=== PATIENT | female | born 1995 ===

== ENCOUNTER 2020-05-13 11:47 | Emergency (ER) | payer MEDICAID, SELFPAY ==
--- NOTE | 2020-05-13 | US_ITS ---
EXAMINATION: ULTRASOUND OF THE PELVIS CLINICAL INFORMATION: Right-sided pain. Rule out abscess/torsion/cyst/appendicitis. COMPARISON: Pelvic MRI 01/21/2017. Ultrasound 12/22/2016.. TECHNIQUE: Transabdominal and transvaginal pelvic ultrasound. Doppler evaluation with spectral analysis was performed. A transvaginal study was performed in addition to the transabdominal study which did not yield an adequate examination of the uterus and ovaries due to superimposed distended gas-filled loops of bowel. FINDINGS: The uterus is normal in size and appearance, measuring 8.9 x 5.4 x 6.1 cm longitudinally, anteroposteriorly and transversely. The endometrial stripe thickness is normal, measuring 1.3 cm in thickness. No focal myometrial mass is seen. The ovaries bilaterally are visualized, with the right ovary measuring 8.4 x 4.2 x 6.7 cm, compared to 4.5 x 3.1 x 4.3 cm on prior. There is a septated cyst measuring 4.1 x 3.7 x 4 cm. There is also a hyperechoic structure consistent with the previously seen dermoid, currently measuring 4 x 3.3 x 3.8 cm. This is increased from 3 x 2.1 x 3.4 cm on prior. The left ovary measures 5 x 3 x 3.3 cm, similar to prior. Redemonstration of the left ovarian dermoid measuring 3.9 x 2.8 x 2.7 cm, similar to prior. There are normal arterial and venous spectral waveforms bilaterally. Trace pelvic free fluid. Incidental note of a 1.8 cm stone at the gallbladder fundus. The appendix is not visualized on this study. US/US pelvic ovarian doppler IMPRESSION: No evidence of active ovarian torsion at this time. Enlarged ovaries, right greater than left. Significant enlargement of the right ovary when compared to the previous study. 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 There is also a prominent septated right ovarian cyst present, which is a new finding from prior. The appendix is not visualized.
[2020-05-13 12:09] VITALS: BP 135/78; PULSE 61; RESP 18; TEMP 37.6; O2SAT 100; BMI 31.9
[2020-05-13 13:52] LABS: Glucose Urine UA NEG (NEG); Leukocyte Esterase Urine NEG (NEG); Nitrite Urine NEG (NEG); Specific Gravity - Urine 1.025 (1.005-1.025); Urine Blood NEG (NEG); Urine Ketones NEG (NEG); Urine Protein NEG (NEG-TRACE)
[2020-05-13 13:55] LABS: Appearance Urine CLEAR; Color Urine YELLOW
[2020-05-13 13:56] LABS: UPreg QC Valid YES; Urine Pregnancy NEGATIVE (NEGATIVE)
[2020-05-13 14:03] LABS: RBC Urine 0 /HPF (0); Squamous Epithelial Cell Urine 2+ /LPF; UACC CULT YES
[2020-05-13 14:04] LABS: Mucus Urine 2+ /LPF
[2020-05-13 16:07] VITALS: BP 119/68; PULSE 66; RESP 16; TEMP 36.6; O2SAT 96
--- NOTE | 2020-05-13 16:21 | ED.ABDPAIN ---
HPI - Abdominal Pain General Chief Complaint: Abdominal Pain Stated Complaint: Pelvic pain Time Seen by Provider: 05/13/20 13:55 History of Present Illness HPI narrative: Patient complains of low right-sided pelvic pain worse with walking for the past 3 days, no nausea vomiting or diarrhea, no dysuria no frequency , she does have a history of discomfort from ovarian cysts, there is no nausea vomiting or diarrhea, no discomfort with urination no fever no chills denies vaginal discharge, no dizziness no weakness Related Data Previous Rx's Medication Instructions Recorded ibuprofen 800 mg PO Q8H PRN #30 tab 05/13/20 Allergies Allergy/AdvReac Type Severity Reaction Status Date / Time No Known Allergies Allergy Verified 05/13/20 12:09 Review of Systems Review of Systems ROS negatives are no headache no dizziness no weakness of breath no no nausea vomiting diarrhea, no urinary symptoms no dysuria no back pain no rash, no abnormal bleeding Yes all other systems are reviewed and are negative Physical Exam Vital Signs: Vital Signs: Last Vital Signs Temp 97.8 F 05/13/20 16:07 Pulse 66 05/13/20 16:07 Resp 16 05/13/20 16:07 BP 119/68 05/13/20 16:07 Pulse Ox 96 05/13/20 16:07 Body Mass Index 31.9 General appearance is A&O x3 comfortable no acute distress cooperative The pharynx is clear with moist mucous membranes Neck is supple The chest is clear to auscultation bilaterally The heart no murmur The abdomen had mild right low pelvic tenderness no rebound no guarding, there was no McBurney's point tenderness The back no CVA tenderness Extremities no edema no calf tenderness Skin no rash Neuro no focal deficits MDM - Abdominal Pain Medical Records Medical records narrative: White cells in urine were noted, but as patient is asymptomatic with no burning on urination no frequency and all normal with her urine as well as reporting scant white discharge which she said is common for her I did not treat for UTI at this time As she has new finding of enlarged painful cyst I called the office of Dr. Burdick from Gynecology and they can see her next week Wednesday and an appointment was made and patient is aware if pain worsens or anything changes she can come back to the ER any time for another evaluate Lab Data Labs: Lab Results 05/13/20 05/13/20 Range/Units 13:36 13:36 Urine Color YELLOW Urine Appearance CLEAR Urine pH 6.0 (5.0-8.0) Ur Specific [place] 1.025 (1.005-1.025) Urine Protein NEG (NEG-TRACE) MG/DL Urine Glucose (UA) NEG (NEG) MG/DL Urine Ketones NEG (NEG) MG/DL Urine Blood NEG (NEG) Urine Nitrite NEG (NEG) Ur Leukocyte Esterase NEG (NEG) Urine RBC 0 (0) /HPF Urine WBC 10-14 H (0-4) /HPF Ur Squamous Epith Cells 2+ /LPF Urine Bacteria NONE /LPF Urine Mucus 2+ /LPF Urine Test NEGATIVE (NEGATIVE) Imaging Data Pelvic ultrasound: Radiologist's impression: Attending Dr: Ordering Physician: PIETER ULRICH Date of Service: 05/13/20 Procedure(s): US pelvic complete Accession Number(s): [id number] cc: PIETER ULRICH~ EXAMINATION: ULTRASOUND OF THE PELVIS CLINICAL INFORMATION: Right-sided pain. Rule out abscess/torsion/cyst/appendicitis. COMPARISON: Pelvic MRI 01/21/2017. Ultrasound 12/22/2016.. TECHNIQUE: Transabdominal and transvaginal pelvic ultrasound. Doppler evaluation with spectral analysis was performed. A transvaginal study was performed in addition to the transabdominal study which did not yield an adequate examination of the uterus and ovaries due to superimposed distended gas-filled loops of bowel. FINDINGS: The uterus is normal in size and appearance, measuring 8.9 x 5.4 x 6.1 cm longitudinally, anteroposteriorly and transversely. The endometrial stripe thickness is normal, measuring 1.3 cm in thickness. No focal myometrial mass is seen. The ovaries bilaterally are visualized, with the right ovary measuring 8.4 x 4.2 x 6.7 cm, compared to 4.5 x 3.1 x 4.3 cm on prior. There is a septated cyst measuring 4.1 x 3.7 x 4 cm. There is also a hyperechoic structure consistent with the previously seen dermoid, currently measuring 4 x 3.3 x 3.8 cm. This is increased from 3 x 2.1 x 3.4 cm on prior. The left ovary measures 5 x 3 x 3.3 cm, similar to prior. Redemonstration of the left ovarian dermoid measuring 3.9 x 2.8 x 2.7 cm, similar to prior. There are normal arterial and venous spectral waveforms bilaterally. Trace pelvic free fluid. Incidental note of a 1.8 cm stone at the gallbladder fundus. The appendix is not visualized on this study. US/US pelvic complete IMPRESSION: No evidence of active ovarian torsion at this time. Enlarged ovaries, right greater than left. Significant enlargement of the right ovary when compared to the previous study. 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 There is also a prominent septated right ovarian cyst present, which is a new finding from prior. The appendix is not visualiz Discharge Plan Discharge Clinical Impression: Ovarian cyst Patient Disposition: Home, Self-Care Additional Instructions: I called the office of the [facility] doctor Dr. burdick of a and you have an appointment for 815 next Wednesday the 20 of May, the phone #[phone] Called to confirm the appointment and to make sure you know where to go Our ultrasound showed the pain is most likely from on ovarian cyst Return to the ER any time for increased pain, fever, vomiting, any worse condition or any concerns Prescriptions: New ibuprofen 800 mg tablet 800 mg PO Q8H PRN (Reason: pain) Qty: 30 RF: 0 Referrals: Corrina Marvin MD [Physician] - None (Pain from enlarged right ovarian cyst) Stand Alone Forms: Work/School Release Interventions: ED Discharge Assessment Last Done: 05/13/20 16:30 Discharge Date/Time: 05/13/20 16:30 [facility] Past Medical History Attestation statement: The following information was validated with the patient. [facility] Narrative: Patient has prior history of ovarian cysts Source: nursing notes reviewed Medical History (Updated 05/14/20 @ 00:00 by Background Daemon) Asthma
== END 2020-05-13 16:30 | disposition home or self-care (01) ==
PROVIDERS: Physician Assistant Medical; Emergency Provider Emergency Medicine; PCP Pediatrics
DX: N83.209 Unspecified ovarian cyst, unspecified side (principal); R10.2 Pelvic and perineal pain
CPT/HCPCS: 76830; 76856; 81001; 81025; 87086; 93975; 99284

== ENCOUNTER → 2020-05-20 08:27 | Outpatient (BNVA) | payer MEDICAID, SELFPAY | PROVIDERS: PCP Pediatrics; Visit Provider Obstetrics & Gynecology | DX: D27.0 Benign neoplasm of right ovary (principal); D27.1 Benign neoplasm of left ovary; N83.201 Unspecified ovarian cyst, right side | CPT/HCPCS: 99202 ==

== ENCOUNTER → 2020-12-17 11:37 | Outpatient (BNVA) | payer MEDICAID, SELFPAY | PROVIDERS: PCP Pediatrics; Visit Provider Physician Assistant Medical | DX: S90.31XA Contusion of right foot, initial encounter (principal); W23.0XXA Caught, crushed, jammed, or pinched between moving objects, initial encounter | CPT/HCPCS: 73630; 99203 ==

== ENCOUNTER → 2020-12-19 10:39 | Outpatient (BNVA) | payer MEDICAID, SELFPAY | PROVIDERS: PCP Pediatrics; Visit Provider Physician Assistant Medical | DX: S90.31XA Contusion of right foot, initial encounter (principal); X58.XXXA Exposure to other specified factors, initial encounter | CPT/HCPCS: 99213 ==

== ENCOUNTER → 2020-12-24 08:37 | Outpatient (BNVA) | payer MEDICAID, SELFPAY | PROVIDERS: PCP Pediatrics; Visit Provider Physician Assistant Medical | DX: S90.31XA Contusion of right foot, initial encounter (principal); X58.XXXA Exposure to other specified factors, initial encounter | CPT/HCPCS: 99213 ==

== ENCOUNTER 2021-01-27 10:23 | Outpatient (REF) | payer MEDICAID, SELFPAY ==
--- NOTE | ~2021-01-27 | US_ITS ---
EXAMINATION: ULTRASOUND PELVIS AND TRANSVAGINAL CLINICAL INFORMATION: Left lower quadrant pain. COMPARISON: None TECHNIQUE: Transabdominal and transvaginal imaging of pelvis is performed. FINDINGS: The uterus is anteverted measuring 8.6 cm in length, 5.3 cm in AP and 7.6 cm in transverse dimension. The endometrial thickness is 1.44 cm. The right ovary measures 4.7 x 1.9 x 2.83 cm and volume 13.2 mL. It appears unremarkable. Left ovary measures 4.61 x 2.3 cm 3.01 cm and volume 17.2 mL. There is corpus luteal cyst measuring 2.51 x 1.62 x 1.7 cm. There is no free fluid in the cul-de-sac. US/US pelvic and transvaginal IMPRESSION: Small corpus luteal cyst left ovary. The right ovary appears unremarkable. The uterus is unremarkable.
== END 2021-01-27 10:24 | disposition home or self-care (01) ==
LOC: HO.HMGCX 10:23
PROVIDERS: PCP Nurse Practitioner Family; Visit Provider Nurse Practitioner Family
DX: R10.32 Left lower quadrant pain (principal)
CPT/HCPCS: 76830; 76856

== ENCOUNTER 2021-03-25 07:05 | Emergency (ER) | payer MEDICAID, SELFPAY ==
[2021-03-25 07:14] VITALS: BP 120/80; BP 125/62; PULSE 62; RESP 16; TEMP 36.6; O2SAT 95; O2SAT 98; BMI 34.7
--- NOTE | 2021-03-25 07:15 | ECG_ITS ---
Test Reason : CHEST PAIN Blood Pressure : / mmHG Vent. Rate : 059 BPM Atrial Rate : 059 BPM P-R Int : 114 ms QRS Dur : 090 ms QT Int : 444 ms P-R-T Axes : 061 037 028 degrees QTc Int : 439 ms Sinus bradycardia Otherwise normal ECG When compared with ECG of 20-JUL-2017 08:08, No significant change was found Referred By: Kassie Montilla Electronically Signed By:LUCY LYNNE
--- NOTE | 2021-03-25 07:17 | ED_ITS ---
HPI - Chest Pain General Chief Complaint: Chest Pain Stated Complaint: CHEST PAIN Time Seen by Provider: 03/25/21 07:14 Source: patient Mode of arrival: EMS Limitations: no limitations History of Present Illness HPI narrative: 26-year-old female past medical history of asthma presents to the emergency department with a 2 minutes long episode of substernal chest pain without radiation that has now resolved and turned to dull chest pain. She states she when she arrived at work she started feeling this chest pain, she went inside, and the chest pain got worse. She states that it fluctuated between 3/10 and a 10/10. She states she has never had chest pain like this before. At this time she states the chest pain has improved, is dull in nature and non radiating. She denies shortness of breath, fevers, chills, nausea, vomiting, abdominal pain. She is not on control. MD complaint: chest pain Onset (ago): hour(s) (2) Timing of current episode: episodic Prior episodes: No Onset: during rest Pain location: substernal Pain radiation: none Severity: severe Pain scale (0-10): 10 Quality: sharp Relieving factors: nothing Exacerbating factors: nothing Related Data Home Medications Medication Instructions Recorded Confirmed albuterol sulfate 90 mcg/actuation 2 puff INHALATION Q6H PRN 05/20/20 aerosol inhaler Previous Rx's Medication Instructions Recorded ibuprofen 800 mg tablet 800 mg PO Q8H PRN #30 tab 05/13/20 Allergies Allergy/AdvReac Type Severity Reaction Status Date / Time No Known Allergies Allergy Verified 05/20/20 08:41 Review of Systems Review of Systems: Constitutional : No Fever, No Chills ENT/Mouth : positive oral swelling, No Hoarseness, No Swallowing Difficulty Eyes: No Eye Pain, No Swelling, No Redness Cardiovascular : + Chest Pain, No SOB Respiratory : No Cough, No Sputum, No Wheezing, No Smoke Exposure, No Dyspnea Gastrointestinal : No Nausea, No Vomiting, No Diarrhea, No abdominal Pain Genitourinary : No Dysuria, No Urinary Frequency, No Hematuria Musculoskeletal : No joint pain, No Myalgias, No Joint Swelling Skin : No Skin Lesions, positive rash Neuro : No Weakness, No Numbness, No Headache Psych : No Anxiety/Panic, No Depression All other systems reviewed and are negative [facility] Past Medical History Medical History (Updated 03/25/21 @ 09:59 by Kassie Montilla DO) Asthma Family History Family History (Updated 05/20/20 @ 08:43 by Shikha Ramírez CMA) Mother Asthma Father Diabetes Social History Social History (Updated 05/20/20 @ 08:43 by Shikha Ramírez CMA) Alcohol intake: current Alcohol intake frequency: holidays/special occasions only Patient Tobacco Use Status: Never used Tobacco Use of substances other than those prescribed or required for medical reasons: No Advance Directives: No Advance Directives Information Provided: No Patient : No Sexual orientation: Straight/Heterosexual Gender identity: Female Physical Exam Vital Signs: Vital Signs: Last Vital Signs Temp 98.0 F 03/25/21 09:17 Pulse 64 03/25/21 10:08 Resp 15 03/25/21 10:08 BP 108/70 03/25/21 10:08 Pulse Ox 98 03/25/21 10:08 Body Mass Index 34.7 Appearance: Alert. Oriented X3. No acute distress. Eyes: Pupils equal, round and reactive to light. Neck: Normal inspection. Neck supple. CVS: Normal heart rate and rhythm. Pulses normal. Respiratory: No respiratory distress. Breath sounds normal. Abdomen: Soft and nontender. Skin: Skin warm and dry. Normal skin color. Normal skin turgor. Extremities: No lower extremity edema. No calf ttp Neuro: Oriented X 3. No motor deficit. No sensory deficit. Course Course Course Narrative: two trops flat MDM - Chest Pain MDM Narrative Medical decision making narrative: 26-year-old female past medical history significant for asthma presents to the emergency department with one episode of chest pain that is substernal, nonradiating and between 3/10 and 10/10. She states that this episode lasted for 2 minutes. At this time she states she is not having stabbing centralized chest pain she states it is a dull nonradiating pain. She states nothing like this has ever happened to her before. She is not on control, denies cardiac family history. PERC negative PE not likely Lab Data Result diagrams: 03/25/21 07:41 03/25/21 07:41 Labs: Lab Results 03/25/21 03/25/21 03/25/21 Range/Units 07:41 07:41 07:41 WBC 7.7 (4.8-10.8) X10*3/uL RBC 4.29 (4.20-5.50) X10*6/uL Hgb 12.2 (12.0-16.0) g/dl Hct 36.7 L (37-47) % MCV 85.5 (80-98) fL MCH 28.4 (27.0-33.0) pg MCHC 33.2 (31.0-35.0) g/dl RDW 11.9 (11.0-16.0) % Plt Count 271 (160-400) X10*3/uL MPV 11.0 (9.4-12.3) fL Immature Gran % (Auto) 0.3 (0.0-0.4) % Neut % (Auto) 64.2 (45-73) % Lymph % (Auto) 24.5 (20-40) % [place] % (Auto) 5.1 (2-11) % Eos % (Auto) 5.5 H (0-4) % Baso % (Auto) 0.4 (0-2) % Lymph # (Auto) 1.9 (1.2-4.9) X10*3/uL [place] # (Auto) 0.4 (0.1-1.2) X10*3/uL Eos # (Auto) 0.4 (0.0-0.4) X10*3/uL Baso # (Auto) 0.0 (0.0-0.2) X10*3/uL Abs Immat Gran (auto) 0.02 (0.00-0.03) X10*3/uL Absolute Neuts (auto) 4.9 (2.0-8.3) X10*3/uL Absolute Nucleated RBC 0.000 (0.0-0.012) X10*3/uL Nucleated RBC % (auto) 0.0 (0.0-0.2) /100WBC Sodium 137 (135-145) mmol/L Potassium 4.3 (3.3-5.1) mmol/L Chloride 107 (96-108) mmol/L Carbon Dioxide 24 (22-29) mmol/L Anion Gap 10 L (12-20) BUN 8 L (9-16) mg/dL Creatinine 0.81 (0.5-1.4) mg/dL Estim Creat Clear Calc 126.1 Estimated GFR > 60 Random Glucose 98 (60-115) mg/dL Calcium 9.1 (8.4-10.2) mg/dL Magnesium 2.0 (1.6-2.6) mg/dL Total Bilirubin 0.7 (0.0-1.0) mg/dL Direct Bilirubin 0.2 (0.0-0.5) mg/dL AST 15 (5-31) U/L ALT 14 (0-31) U/L Alkaline Phosphatase 87 (39-117) U/L Troponin I High Sens < 3.5 (<3.5-17.0) ng/L Total Protein 6.8 (6.5-8.0) g/dL Albumin 4.1 (3.5-5.0) g/dL Urine Color Urine Appearance Urine pH (5.0-8.0) Ur Specific [place] (1.005-1.025) Urine Protein (NEG-TRACE) MG/DL Urine Glucose (UA) (NEG) MG/DL Urine Ketones (NEG) MG/DL Urine Blood (NEG) Urine Nitrite (NEG) Ur Leukocyte Esterase (NEG) Urine RBC (0) /HPF Urine WBC (0-4) /HPF Ur Squamous Epith Cells /LPF Urine Bacteria /LPF Urine Test (NEGATIVE) COVID-19 ([facility]) (Negative) COVID-19 Clin Com 03/25/21 03/25/21 03/25/21 Range/Units 07:41 07:51 07:51 WBC (4.8-10.8) X10*3/uL RBC (4.20-5.50) X10*6/uL Hgb (12.0-16.0) g/dl Hct (37-47) % MCV (80-98) fL MCH (27.0-33.0) pg MCHC (31.0-35.0) g/dl RDW (11.0-16.0) % Plt Count (160-400) X10*3/uL MPV (9.4-12.3) fL Immature Gran % (Auto) (0.0-0.4) % Neut % (Auto) (45-73) % Lymph % (Auto) (20-40) % [place] % (Auto) (2-11) % Eos % (Auto) (0-4) % Baso % (Auto) (0-2) % Lymph # (Auto) (1.2-4.9) X10*3/uL [place] # (Auto) (0.1-1.2) X10*3/uL Eos # (Auto) (0.0-0.4) X10*3/uL Baso # (Auto) (0.0-0.2) X10*3/uL Abs Immat Gran (auto) (0.00-0.03) X10*3/uL Absolute Neuts (auto) (2.0-8.3) X10*3/uL Absolute Nucleated RBC (0.0-0.012) X10*3/uL Nucleated RBC % (auto) (0.0-0.2) /100WBC Sodium (135-145) mmol/L Potassium (3.3-5.1) mmol/L Chloride (96-108) mmol/L Carbon Dioxide (22-29) mmol/L Anion Gap (12-20) BUN (9-16) mg/dL Creatinine (0.5-1.4) mg/dL Estim Creat Clear Calc Estimated GFR Random Glucose (60-115) mg/dL Calcium (8.4-10.2) mg/dL Magnesium (1.6-2.6) mg/dL Total Bilirubin (0.0-1.0) mg/dL Direct Bilirubin (0.0-0.5) mg/dL AST (5-31) U/L ALT (0-31) U/L Alkaline Phosphatase (39-117) U/L Troponin I High Sens (<3.5-17.0) ng/L Total Protein (6.5-8.0) g/dL Albumin (3.5-5.0) g/dL Urine Color YELLOW Urine Appearance CLEAR Urine pH 6.5 (5.0-8.0) Ur Specific [place] 1.020 (1.005-1.025) Urine Protein NEG (NEG-TRACE) MG/DL Urine Glucose (UA) NEG (NEG) MG/DL Urine Ketones NEG (NEG) MG/DL Urine Blood NEG (NEG) Urine Nitrite NEG (NEG) Ur Leukocyte Esterase TRACE H (NEG) Urine RBC 0-2 (0) /HPF Urine WBC 1-4 (0-4) /HPF Ur Squamous Epith Cells 1+ /LPF Urine Bacteria TRACE /LPF Urine Test NEGATIVE (NEGATIVE) COVID-19 ([facility]) Negative (Negative) COVID-19 Clin Com See Note 03/25/21 Range/Units 09:22 WBC (4.8-10.8) X10*3/uL RBC (4.20-5.50) X10*6/uL Hgb (12.0-16.0) g/dl Hct (37-47) % MCV (80-98) fL MCH (27.0-33.0) pg MCHC (31.0-35.0) g/dl RDW (11.0-16.0) % Plt Count (160-400) X10*3/uL MPV (9.4-12.3) fL Immature Gran % (Auto) (0.0-0.4) % Neut % (Auto) (45-73) % Lymph % (Auto) (20-40) % [place] % (Auto) (2-11) % Eos % (Auto) (0-4) % Baso % (Auto) (0-2) % Lymph # (Auto) (1.2-4.9) X10*3/uL [place] # (Auto) (0.1-1.2) X10*3/uL Eos # (Auto) (0.0-0.4) X10*3/uL Baso # (Auto) (0.0-0.2) X10*3/uL Abs Immat Gran (auto) (0.00-0.03) X10*3/uL Absolute Neuts (auto) (2.0-8.3) X10*3/uL Absolute Nucleated RBC (0.0-0.012) X10*3/uL Nucleated RBC % (auto) (0.0-0.2) /100WBC Sodium (135-145) mmol/L Potassium (3.3-5.1) mmol/L Chloride (96-108) mmol/L Carbon Dioxide (22-29) mmol/L Anion Gap (12-20) BUN (9-16) mg/dL Creatinine (0.5-1.4) mg/dL Estim Creat Clear Calc Estimated GFR Random Glucose (60-115) mg/dL Calcium (8.4-10.2) mg/dL Magnesium (1.6-2.6) mg/dL Total Bilirubin (0.0-1.0) mg/dL Direct Bilirubin (0.0-0.5) mg/dL AST (5-31) U/L ALT (0-31) U/L Alkaline Phosphatase (39-117) U/L Troponin I High Sens < 3.5 (<3.5-17.0) ng/L Total Protein (6.5-8.0) g/dL Albumin (3.5-5.0) g/dL Urine Color Urine Appearance Urine pH (5.0-8.0) Ur Specific [place] (1.005-1.025) Urine Protein (NEG-TRACE) MG/DL Urine Glucose (UA) (NEG) MG/DL Urine Ketones (NEG) MG/DL Urine Blood (NEG) Urine Nitrite (NEG) Ur Leukocyte Esterase (NEG) Urine RBC (0) /HPF Urine WBC (0-4) /HPF Ur Squamous Epith Cells /LPF Urine Bacteria /LPF Urine Test (NEGATIVE) COVID-19 ([facility]) (Negative) COVID-19 Clin Com ECG Data ECG #1: Attestation: I personally reviewed and interpreted this ECG as follows: ECG interpretation date: 03/25/21 ECG interpretation time: 07:57 Prior ECG tracings: available for review Interpretation: Rate: 59 Rhythm: Sinus bradycardia Equality: Normal axis Normal P waves. Normal AGATHA. Normal QRS complex. ST T wave : No ST elevations, T-wave inversions . No acute ischemia qTC: Normal prior studies: 07/20/2017, no acute changes The study has been interpreted contemporaneously by me. . Discharge Plan Discharge Clinical Impression: Chest pain Qualifiers: Chest pain type: unspecified Qualified Code(s): R07.9 - Chest pain, unspecified Patient Disposition: Home, Self-Care Instructions: Chest Pain (ED) Additional Instructions: Follow-up with your primary care provider Return to the emergency department with new or worsening symptoms Today you tested negative for COVID-19 in the emergency department Prescriptions: No Action ibuprofen 800 mg tablet 800 mg PO Q8H PRN (Reason: pain) Qty: 30 RF: 0 albuterol sulfate 90 mcg/actuation HFA aerosol inhaler 2 puff inhalation Q6H PRNRF: 0 Stand Alone Forms: Work/School Release Interventions: ED Discharge Assessment Last Done: 03/25/21 10:03 Discharge Date/Time: 03/25/21 10:08
[2021-03-25 07:53] VITALS: BP 121/68; PULSE 59; RESP 13; TEMP 36.6; O2SAT 99
[2021-03-25 07:59] LABS: MANUAL DIFF FLAG NO
[2021-03-25 08:02] LABS: Basophils Percent Auto 0.4 % (0-2); Eosinophils Absolute Auto 0.4 X10*3/uL (0.0-0.4); Eosinophils Percent Auto 5.5 % (0-4); Hematocrit 36.7 % (37-47); Hemoglobin 12.2 g/dl (12.0-16.0); Imm Gran Abs Auto 0.02 X10*3/uL (0.00-0.03); Imm Gran Pct Auto 0.3 % (0.0-0.4); Lymphocytes Absolute Auto 1.9 X10*3/uL (1.2-4.9); Lymphocytes Percent Auto 24.5 % (20-40); Mean Corpuscular HGB Conc 33.2 g/dl (31.0-35.0); Mean Corpuscular Hemoglobin 28.4 pg (27.0-33.0); Mean Corpuscular Volume 85.5 fL (80-98); Monocytes Absolute Auto 0.4 X10*3/uL (0.1-1.2); Monocytes Percent Auto 5.1 % (2-11); Neutrophils Absolute Auto 4.9 X10*3/uL (2.0-8.3); Neutrophils Percent Auto 64.2 % (45-73); Platelet Count 271 X10*3/uL (160-400); Red Blood Count 4.29 X10*6/uL (4.20-5.50); Red Cell Distribution Width 11.9 % (11.0-16.0); White Blood Count 7.7 X10*3/uL (4.8-10.8)
[2021-03-25 08:04] LABS: Appearance Urine CLEAR; Color Urine YELLOW; Glucose Urine UA NEG (NEG); Leukocyte Esterase Urine TRACE (NEG); Nitrite Urine NEG (NEG); PH 6.5 (5.0-8.0); UACC Culture Trigger YES; Urine Blood NEG (NEG); Urine Ketones NEG (NEG); Urine Protein NEG (NEG-TRACE)
[2021-03-25 08:07] LABS: UPreg QC Valid YES; Urine Pregnancy NEGATIVE (NEGATIVE)
[2021-03-25 08:19] LABS: Bacteria Urine TRACE /LPF; RBC Urine 0-2 /HPF (0); Squamous Epithelial Cell Urine 1+ /LPF
[2021-03-25 08:21] LABS: Alanine Aminotransferase 14 U/L (0-31); Albumin Level 4.1 g/dL (3.5-5.0); Alkaline Phosphatase 87 U/L (39-117); Anion Gap 10 (12-20); Aspartate Amino Transferase 15 U/L (5-31); Bilirubin Direct 0.2 mg/dL (0.0-0.5); Bilirubin Total 0.7 mg/dL (0.0-1.0); Blood Urea Nitrogen 8 mg/dL (9-16); Calcium 9.1 mg/dL (8.4-10.2); Carbon Dioxide 24 mmol/L (22-29); Chloride 107 mmol/L (96-108); Creatinine Clr Calc Pharmacy 126.1; Estimated Glomerular Filt Rate > 60; Glucose Random 98 mg/dL (60-115); Potassium 4.3 mmol/L (3.3-5.1); Sodium 137 mmol/L (135-145); Total Protein 6.8 g/dL (6.5-8.0)
[2021-03-25 08:25] LABS: COVID-19 Test Negative (Negative); Troponin-I High Sensitivity < 3.5 ng/L (<3.5-17.0)
[2021-03-25 09:17] VITALS: BP 108/69; PULSE 58; RESP 14; TEMP 36.7; O2SAT 99
[2021-03-25 09:56] LABS: Troponin-I High Sensitivity < 3.5 ng/L (<3.5-17.0)
[2021-03-25 10:08] VITALS: BP 108/70; PULSE 64; RESP 15; O2SAT 98
== END 2021-03-25 10:08 | disposition home or self-care (01) ==
PROVIDERS: Emergency Provider Emergency Medicine
DX: R07.9 Chest pain, unspecified (principal); Z20.822 Contact with and (suspected) exposure to COVID-19; Z79.899 Other long term (current) drug therapy
CPT/HCPCS: 36415; 80048; 80076; 81001; 81003; 81025; 83735; 84484; 85025; 87086; 87635; 93005; 99283; 99285

== ENCOUNTER 2021-06-26 15:36 | Emergency (ER) | payer MEDICAID, SELFPAY ==
--- NOTE | ~2021-06-26 | US_ITS ---
EXAMINATION: ULTRASOUND PELVIC, obstetrics CLINICAL INFORMATION: . Pelvic pain. Concern for torsion. COMPARISON: Pelvic ultrasound 01/27/2021 TECHNIQUE: Transvaginal: Used to better visualize pelvic structures Transabdominal: Not adequate for visualization Spectral Doppler and color Doppler exam was utilized. LMP: 05/24/2021 FINDINGS: UTERUS: Uterus is anteverted and anteflexed. Uterus measures 9.7 x 5.3 x 6.7 cm. There is an intrauterine gestational sac with yolk sac present. There is a pole with crown-rump length of 0.2 cm consistent with dating of 5 weeks 6 days. ETELVINA 02/21/2022. (Gestational sac diameter 0.42 cm which would correlate with dating of 4 weeks 6 days.) Small collection of fluid in the endometrial cavity. ADNEXA: Ovarian vascularity:Doppler demonstrates both arterial and venous vascular flow in the right and left ovary. No evidence of ovarian torsion. Right Ovary: Corpus luteum cyst measuring 3 x 2.2 x 2.2 cm. Right ovary measures 5.5 x 2.8 x 3.1 cm. Right ovarian volume 25 mL. Left Ovary: 3.7 x 2.1 x 2.2 cm. Left ovarian volume 9 mL Cul-de-sac: No Fluid US/US OB <= 14 weeks fetus IMPRESSION: 1. Single intrauterine gestation with estimated gestational age by this exam using crown-rump length measurement is 5 weeks 6 days. 2. Corpus luteum cyst right ovary. 3. No evidence of ovarian torsion.
--- NOTE | ~2021-06-26 | US_ITS ---
EXAMINATION: ULTRASOUND PELVIC, obstetrics CLINICAL INFORMATION: . Pelvic pain. Concern for torsion. COMPARISON: Pelvic ultrasound 01/27/2021 TECHNIQUE: Transvaginal: Used to better visualize pelvic structures Transabdominal: Not adequate for visualization Spectral Doppler and color Doppler exam was utilized. LMP: 05/24/2021 FINDINGS: UTERUS: Uterus is anteverted and anteflexed. Uterus measures 9.7 x 5.3 x 6.7 cm. There is an intrauterine gestational sac with yolk sac present. There is a pole with crown-rump length of 0.2 cm consistent with dating of 5 weeks 6 days. ETELVINA 02/21/2022. (Gestational sac diameter 0.42 cm which would correlate with dating of 4 weeks 6 days.) Small collection of fluid in the endometrial cavity. ADNEXA: Ovarian vascularity:Doppler demonstrates both arterial and venous vascular flow in the right and left ovary. No evidence of ovarian torsion. Right Ovary: Corpus luteum cyst measuring 3 x 2.2 x 2.2 cm. Right ovary measures 5.5 x 2.8 x 3.1 cm. Right ovarian volume 25 mL. Left Ovary: 3.7 x 2.1 x 2.2 cm. Left ovarian volume 9 mL Cul-de-sac: No Fluid US/US pelvic ovarian doppler IMPRESSION: 1. Single intrauterine gestation with estimated gestational age by this exam using crown-rump length measurement is 5 weeks 6 days. 2. Corpus luteum cyst right ovary. 3. No evidence of ovarian torsion.
[2021-06-26 17:14] VITALS: BP 125/60; PULSE 72; RESP 18; TEMP 36.8; O2SAT 98; BMI 32.8
--- NOTE | 2021-06-26 17:25 | ED_ITS ---
HPI - Abdominal Pain General Chief Complaint: Abdominal Pain Stated Complaint: Left lower abd pain Time Seen by Provider: 06/26/21 17:15 Source: patient Mode of arrival: ambulatory Limitations: no limitations History of Present Illness HPI narrative: 26-year-old female with a history of ovarian cyst status post resection in July of this year at [facility] who presents to the ER with left- sided lower pelvic pain that is worse with movement. Pain has been present for the last 2 days and comes and goes. She has also 3 days late for her menses. She has been trying to get for 10 months now. She denies any nausea, vomiting, fever, chills. She has clear vaginal discharge and no vaginal bleeding. No concern for STI, no new sexual partners. MD elicited complaint: abdominal pain Pertinent past history: other (Ovarian cysts) Onset (ago): day(s) (2) Pain Consistency: intermittent Location: LLQ and pelvis Severity: moderate Quality: stabbing Radiation: none Migration to: no migration Exacerbating factors: movement and other (Walking) Relieving factors: nothing Context: history of similar episodes Associated symptoms: denies other symptoms Related Data Home Medications Medication Instructions Recorded Confirmed albuterol sulfate 90 mcg/actuation 2 puff INHALATION Q6H PRN 05/20/20 aerosol inhaler Previous Rx's Medication Instructions Recorded ibuprofen 800 mg tablet 800 mg PO Q8H PRN #30 tab 05/13/20 Allergies Allergy/AdvReac Type Severity Reaction Status Date / Time No Known Allergies Allergy Verified 06/26/21 17:14 Review of Systems Review of Systems Constitutional: No Fever, No Chills ENT/Mouth: No sore throat, No Rhinorrhea, No Swallowing Difficulty Cardiovascular: No Chest Pain, No SOB Gastrointestinal: No Nausea, No Vomiting, No Diarrhea, + abdominal Pain, No Hematochezia, No Melena Genitourinary: No Dysuria, No Urinary Frequency, No Hematuria, No vaginal discharge Musculoskeletal: No joint pain, No Myalgias Skin: No Skin Lesions, No rash Neuro: No Weakness, No Numbness, No Dizziness, No Headache Psych: + Anxiety/Panic, No Depression Heme/Lymph: No Bruising, No Lymphadenopathy Endocrine: No Polyuria, No Polydipsia Physical Exam Vital Signs: Vital Signs: Last Vital Signs Temp 97.9 F 06/26/21 18:39 Pulse 71 06/26/21 18:39 Resp 18 06/26/21 18:39 BP 122/68 06/26/21 18:39 Pulse Ox 100 06/26/21 18:39 BMI result Body Mass Index 32.8 Appearance: Alert. Oriented X3. No acute distress. Eyes: Pupils equal, round and reactive to light. ENT: Pharynx normal. Neck: Normal inspection. Neck supple. CVS: Normal heart rate and rhythm. Pulses normal. Respiratory: No respiratory distress. Breath sounds normal. Abdomen: Soft with mild LLQ tenderness on deep palpation, no palpable mass. no rebound or gurading. +BS x4. pelvic deferred Skin: Skin warm and dry. Normal skin color. Normal skin turgor. No rashes. Extremities: No lower extremity edema. Neuro: Oriented X 3. grossly normal, nonfocal Course Course Course Narrative: 26-year-old female presenting with left lower pelvic pain for the last 2 days. She reports pain is similar to when she had her ovarian cyst. She is also 3 days late for her period. She has been actively trying to get for the last 10 months. Will get HCG quant, Pelvic U/S, UA and lab workup. Pelvic deferred for now, denies concern for STI. Reevaluation(s) Reevaluation #1: Pelvic ultrasound showing single IUP, approximately 5 weeks gestation. No ovarian torsion. UA negarive. Labs otherwise unremarkable. Patient stable for d/c home with plan to f/u with PCP and presser first. MDM - Abdominal Pain Lab Data Result diagrams: 06/26/21 18:09 06/26/21 18:09 Labs: Lab Results 06/26/21 06/26/21 06/26/21 Range/Units 18:09 18:09 18:09 WBC 8.1 (4.8-10.8) X10*3/uL RBC 4.00 L (4.20-5.50) X10*6/uL Hgb 11.6 L (12.0-16.0) g/dl Hct 34.4 L (37.0-47.0) % MCV 86.0 (80.0-98.0) fL MCH 29.0 (27.0-33.0) pg MCHC 33.7 (31.0-35.0) g/dl RDW 12.1 (11.0-16.0) % Plt Count 287 (160-400) X10*3/uL MPV 10.7 (9.4-12.3) fL Immature Gran % (Auto) 0.1 (0.0-0.4) % Neut % (Auto) 67.7 (45-73) % Lymph % (Auto) 21.5 (20-40) % [place] % (Auto) 7.9 (2-11) % Eos % (Auto) 2.6 (0-4) % Baso % (Auto) 0.2 (0-2) % Lymph # (Auto) 1.7 (1.2-4.9) X10*3/uL [place]uming # (Auto) 0.6 (0.1-1.2) X10*3/uL Eos # (Auto) 0.2 (0.0-0.4) X10*3/uL Baso # (Auto) 0.0 (0.0-0.2) X10*3/uL Abs Immat Gran (auto) 0.01 (0.00-0.03) X10*3/uL Absolute Neuts (auto) 5.5 (2.0-8.3) x10*3/uL Absolute Nucleated RBC 0.000 (0.0-0.012) X10*3/uL Nucleated RBC % (auto) 0.0 (0.0-0.2) /100WBC Sodium 137 (135-145) mmol/L Potassium 3.8 (3.3-5.1) mmol/L Chloride 108 (96-108) mmol/L Carbon Dioxide 23 (22-29) mmol/L Anion Gap 10 L (12-20) BUN 6 L (9-16) mg/dL Creatinine 0.76 (0.5-1.4) mg/dL Estim Creat Clear Calc 135.2 Estimated GFR > 60 Random Glucose 95 (60-115) mg/dL Calcium 9.4 (8.4-10.2) mg/dL Magnesium 1.9 (1.6-2.6) mg/dL Total Bilirubin 0.4 (0.0-1.0) mg/dL Direct Bilirubin 0.2 (0.0-0.5) mg/dL AST 16 (5-31) U/L ALT 19 (0-31) U/L Alkaline Phosphatase 73 (39-117) U/L Total Protein 6.7 (6.5-8.0) g/dL Albumin 4.0 (3.5-5.0) g/dL Beta HCG, Quant 1130 mIU/mL Urine Color Urine Appearance Urine pH (5.0-8.0) Ur Specific [place] (1.005-1.025) Urine Protein (NEG-TRACE) MG/DL Urine Glucose (UA) (NEG) MG/DL Urine Ketones (NEG) MG/DL Urine Blood (NEG) Urine Nitrite (NEG) Ur Leukocyte Esterase (NEG) COVID-19 (ROBERT) Negative (Negative) COVID-19 Clin Com See Note 06/26/21 Range/Units 18:09 WBC (4.8-10.8) X10*3/uL RBC (4.20-5.50) X10*6/uL Hgb (12.0-16.0) g/dl Hct (37.0-47.0) % MCV (80.0-98.0) fL MCH (27.0-33.0) pg MCHC (31.0-35.0) g/dl RDW (11.0-16.0) % Plt Count (160-400) X10*3/uL MPV (9.4-12.3) fL Immature Gran % (Auto) (0.0-0.4) % Neut % (Auto) (45-73) % Lymph % (Auto) (20-40) % [place] % (Auto) (2-11) % Eos % (Auto) (0-4) % Baso % (Auto) (0-2) % Lymph # (Auto) (1.2-4.9) X10*3/uL [place] # (Auto) (0.1-1.2) X10*3/uL Eos # (Auto) (0.0-0.4) X10*3/uL Baso # (Auto) (0.0-0.2) X10*3/uL Abs Immat Gran (auto) (0.00-0.03) X10*3/uL Absolute Neuts (auto) (2.0-8.3) x10*3/uL Absolute Nucleated RBC (0.0-0.012) X10*3/uL Nucleated RBC % (auto) (0.0-0.2) /100WBC Sodium (135-145) mmol/L Potassium (3.3-5.1) mmol/L Chloride (96-108) mmol/L Carbon Dioxide (22-29) mmol/L Anion Gap (12-20) BUN (9-16) mg/dL Creatinine (0.5-1.4) mg/dL Estim Creat Clear Calc Estimated GFR Random Glucose (60-115) mg/dL Calcium (8.4-10.2) mg/dL Magnesium (1.6-2.6) mg/dL Total Bilirubin (0.0-1.0) mg/dL Direct Bilirubin (0.0-0.5) mg/dL AST (5-31) U/L ALT (0-31) U/L Alkaline Phosphatase (39-117) U/L Total Protein (6.5-8.0) g/dL Albumin (3.5-5.0) g/dL Beta HCG, Quant mIU/mL Urine Color DK YELLOW Urine Appearance HAZY Urine pH 6.0 (5.0-8.0) Ur Specific [place] 1.025 (1.005-1.025) Urine Protein TRACE (NEG-TRACE) MG/DL Urine Glucose (UA) NEG (NEG) MG/DL Urine Ketones 5 (NEG) MG/DL Urine Blood NEG (NEG) Urine Nitrite NEG (NEG) Ur Leukocyte Esterase NEG (NEG) COVID-19 (ROBERT) (Negative) COVID-19 Clin Com Critical Care Time Critical Care Time Critical Care Time: No Discharge Plan Discharge Clinical Impression: Qualifiers: Weeks of gestation: less than 8 weeks Qualified Code(s): Z3A.01 - Less than 8 weeks gestation of Patient Disposition: Home, Self-Care Instructions: (ED) Additional Instructions: Ultrasound today showed a single intrauterine gestational sac that is estimated about 5 weeks 6 days along. Congrats! :) Recommend start taking vitamins.Your labs showed some mild anemia. Follow-up with your OB for further management. Prescriptions: No Action ibuprofen 800 mg tablet 800 mg PO Q8H PRN (Reason: pain) Qty: 30 RF: 0 albuterol sulfate 90 mcg/actuation HFA aerosol inhaler 2 puff inhalation Q6H PRNRF: 0 PMFSH Past Medical History Medical History (Updated 06/26/21 @ 18:06 by CARL Linares) Asthma Ovarian cyst Family History Family History (Updated 05/20/20 @ 08:43 by Shikha Ramírez CMA) Mother Asthma Father Diabetes Social History Social History (Updated 05/20/20 @ 08:43 by Shikha Ramírez CMA) Alcohol intake: current Alcohol intake frequency: holidays/special occasions only Patient Tobacco Use Status: Never used Tobacco Advance Directives: No Advance Directives Information Provided: No Sexual orientation: Straight/Heterosexual Gender identity: Female
[2021-06-26 18:22] LABS: MANUAL DIFF FLAG NO
[2021-06-26 18:24] LABS: Basophils Percent Auto 0.2 % (0-2); Eosinophils Absolute Auto 0.2 X10*3/uL (0.0-0.4); Eosinophils Percent Auto 2.6 % (0-4); Hematocrit 34.4 % (37.0-47.0); Hemoglobin 11.6 g/dl (12.0-16.0); Imm Gran Abs Auto 0.01 X10*3/uL (0.00-0.03); Imm Gran Pct Auto 0.1 % (0.0-0.4); Lymphocytes Absolute Auto 1.7 X10*3/uL (1.2-4.9); Lymphocytes Percent Auto 21.5 % (20-40); Mean Corpuscular HGB Conc 33.7 g/dl (31.0-35.0); Mean Platelet Volume 10.7 fL (9.4-12.3); Monocytes Absolute Auto 0.6 X10*3/uL (0.1-1.2); Monocytes Percent Auto 7.9 % (2-11); Neutrophils Absolute Auto 5.5 x10*3/uL (2.0-8.3); Neutrophils Percent Auto 67.7 % (45-73); Platelet Count 287 X10*3/uL (160-400); Red Cell Distribution Width 12.1 % (11.0-16.0); White Blood Count 8.1 X10*3/uL (4.8-10.8)
[2021-06-26 18:39] VITALS: BP 122/68; PULSE 71; RESP 18; TEMP 36.6; O2SAT 100
[2021-06-26 18:39] LABS: Alanine Aminotransferase 19 U/L (0-31); Alkaline Phosphatase 73 U/L (39-117); Anion Gap 10 (12-20); Aspartate Amino Transferase 16 U/L (5-31); Bilirubin Direct 0.2 mg/dL (0.0-0.5); Bilirubin Total 0.4 mg/dL (0.0-1.0); Blood Urea Nitrogen 6 mg/dL (9-16); COVID-19 Test Negative (Negative); Calcium 9.4 mg/dL (8.4-10.2); Carbon Dioxide 23 mmol/L (22-29); Chloride 108 mmol/L (96-108); Creatinine Clr Calc Pharmacy 135.2; Estimated Glomerular Filt Rate > 60; Glucose Random 95 mg/dL (60-115); Magnesium 1.9 mg/dL (1.6-2.6); Potassium 3.8 mmol/L (3.3-5.1); Sodium 137 mmol/L (135-145); Total Protein 6.7 g/dL (6.5-8.0)
[2021-06-26 18:44] LABS: Appearance Urine HAZY; Color Urine DK YELLOW; Glucose Urine UA NEG (NEG); Leukocyte Esterase Urine NEG (NEG); Nitrite Urine NEG (NEG); Specific Gravity - Urine 1.025 (1.005-1.025); Urine Blood NEG (NEG); Urine Ketones 5 MG/DL (NEG); Urine Protein TRACE MG/DL (NEG-TRACE)
[2021-06-26 18:45] LABS: HCG Quantitative 1130 mIU/mL
== END 2021-06-26 19:33 | disposition home or self-care (01) ==
PROVIDERS: Physician Assistant; Emergency Provider Emergency Medicine Emergency Medical Services
DX: O26.91 Pregnancy related conditions, unspecified, first trimester (principal); R10.32 Left lower quadrant pain; Z3A.08 8 weeks gestation of pregnancy; Z20.822 Contact with and (suspected) exposure to COVID-19; Z79.899 Other long term (current) drug therapy
CPT/HCPCS: 36415; 76801; 80048; 80076; 81003; 83735; 84702; 85025; 87635; 93975; 99283; 99284

== ENCOUNTER 2022-07-12 16:32 | Emergency (ER) | payer MEDICAID, SELFPAY ==
[2022-07-12 16:46] VITALS: BP 124/67; PULSE 77; RESP 18; TEMP 36.6; O2SAT 95; BMI 24.3
--- NOTE | 2022-07-12 16:49 | ED_ITS ---
HPI - General Adult General Chief complaint: Upper Respiratory Symptoms Stated complaint: pain in throat and ear Time Seen by Provider: 07/12/22 18:53 Source: patient Mode of arrival: ambulatory Limitations: no limitations History of Present Illness HPI narrative: 27 yold female presents to the ED for sore throat and ear pain SINCE YESTERDAY. PATIENT STATES ALSO BODYACHES. PATIENT DENIES ANY CHEST PAIN OR SHORTNESS OF BREATH. PATIENT DENIES ANY DROOLING, CHANGE IN VOICE, NECK SWELLING, SHORTNESS OF BREATHM OR ABDOMINAL PAIN Related Data Home Medications Medication Instructions Recorded Confirmed albuterol sulfate 90 mcg/actuation 2 puff inhalation Q6H PRN 05/20/20 aerosol inhaler Previous Rx's Medication Instructions Recorded ibuprofen 800 mg tablet 800 mg PO Q8H PRN pain #30 tabs 05/13/20 amoxicillin 875 mg-potassium 1 tab PO Q12H 10 days #20 tabs 07/12/22 clavulanate 125 mg tablet naproxen 500 mg tablet 500 mg PO BID PRN pain 10 days #20 07/12/22 tabs Allergies Allergy/AdvReac Type Severity Reaction Status Date / Time No Known Allergies Allergy Verified 07/12/22 16:46 Review of Systems Review of Systems: EAR PAIN AND SORE T HROAT Yes all other systems are reviewed and are negative [facility] Past Medical History Medical History (Updated 07/12/22 @ 18:51 by CARL Perla) Asthma Ovarian cyst Family History Family History (Updated 05/20/20 @ 08:43 by Shikha Ramírez CMA) Mother Asthma Father Diabetes Social History Social History (Updated 05/20/20 @ 08:43 by Shikha Ramírez CMA) Alcohol intake: current Alcohol intake frequency: holidays/special occasions only Patient Tobacco Use Status: Never used Tobacco Advance Directives: No Advance Directives Information Provided: Yes Sexual orientation: Straight/Heterosexual Gender identity: Female Physical Exam ED Vital Signs: Vital Signs - 24 hr 07/12/22 16:46 Temperature 97.8 F Pulse Rate 77 Respiratory Rate 18 Blood Pressure 124/67 Pulse Oximetry 95 Oxygen Delivery Method Room Air BMI result Body Mass Index 24.3 Const General: cooperative, healthy appearing, comfortable, no acute distress, well developed, alert, awake and Physically active Orientation/consciousness: oriented to person, oriented to place, oriented to time and patient oriented x3 HENMT Head: Yes normal to inspection, Yes No palpable skull fracture present, Yes normocephalic, Yes atraumatic and No abrasion Ears: hearing grossly normal bilaterally, external ears normal, TM's normal bilaterally, TM normal on the right, EAC's normal, mastoids normal and no periauricular adenopathy Face and sinus: Yes normal facial exam and Yes sinuses nontender Throat: Yes uvula midline, Yes abnormal tonsil (REDNESS) and Yes posterior oropharynx abnormal (REDNESS.) Eyes General: appearance normal, both eyes and all related structures Neck Neck: Yes normal visual inspection, Yes full ROM, Yes no lymphadenopathy, Yes no meningeal signs, Yes trachea midline, Yes supple, No anterior neck swelling and No tender Chest Chest palpation & inspection: normal inspection of the chest and normal palpation of entire chest wall Resp Effort & Inspection: normal respiratory effort and able to speak in complete sentences Auscultation: clear to auscultation bilaterally Cardio Jugular venous distension: no JVD Heart sounds: S1 normal heart sound present and S2 normal heart sound present GI Inspection: Yes normal to inspection and No abdominal wall ecchymosis Palpation (GI): not firm, nontender, no guarding and not rigid General: No CVA tenderness and Yes no CVA tenderness Back/Spine/Pelvis Back: no CVA tenderness, No CVA tenderness and No back tenderness Skin General skin exam: no rashes or lesions noted and elasticity normal Neuro General: oriented to person, oriented to place, oriented to time, patient oriented x3, gait normal, tone normal, moves all extremities, Normal light touch and pain sensation, no meningeal signs, no focal motor deficits and CN's II-XI intact bilaterally Extrem General: Yes normal to inspection and Yes full ROM Psych Appearance: grossly normal, well kempt and not disheveled Course Course Course Narrative: RME: 27 yold female presents to the ED for sore throat, bilateral ear pain, cough, and bodyaches. patient swabbed for covid and strep. ear and throat exam normal. patient swabbed for SARS and covid Reevaluation(s) Reevaluation #1: SARS and strep negative. patient is will be treated clinically as infective pharyngitis and discharged with antibiotics and pain meds. Time: 06:59 Medical Decision Making Medical Decision Making MDM Narrative: 27 yold female presents to the ED for sore throat. history and phyiscal exam indicate pharyngitis. not suspecting peritonsillar absces, retropharyngeal abscess, or ludgwig angina. SARS, Strep, and covid ordered Differential Diagnosis Differential Diagnoses: The differential diagnosis associated with the presentation includes (RSV, flu, covid, strep) Admission/Observation no need for admission Lab Data MDM Lab Attestation statement: I reviewed the patient's lab results. Labs: Lab Results 07/12/22 07/12/22 Range/Units 17:06 17:36 Influenza Type A (PCR) NEGATIVE (Negative) Influenza Type B (PCR) NEGATIVE (Negative) RSV RNA Qual (PCR) NEGATIVE (Negative) SARS-CoV-2 RNA (RT-PCR) NEGATIVE (Negative) S. pyogenes GrpA LINNETTE Negative (Negative) Prescription Management I considered prescription management with: Antibiotic Discharge Plan Discharge Clinical Impression: Pharyngitis Patient Disposition: Home, Self-Care Instructions: Pharyngitis (ED), Earache (ED) Additional Instructions: Return to the ED for any worsening sore throat, fever, chills, nuasea, vomitting, drooling, change in voice, chest pain, abdominal pain, headache, d izziness, worsening ear pain, or any other concerning symptoms. please follow up with PCP Prescriptions: New amoxicillin-pot clavulanate 875-125 mg tablet 1 tab PO Q12H 10 Days Qty: 20 0RF naproxen 500 mg tablet 500 mg PO BID PRN (Reason: pain) 10 Days Qty: 20 0RF No Action ibuprofen 800 mg tablet 800 mg PO Q8H PRN (Reason: pain) Qty: 30 0RF albuterol sulfate 90 mcg/actuation HFA aerosol inhaler 2 puff inhalation Q6H PRN Stand Alone Forms: Work/School Release Interventions: ED Discharge Assessment Last Done: 07/12/22 18:53 Discharge Date/Time: 07/12/22 18:54 Print Language: Vincentian
[2022-07-12 17:50] LABS: IDNOW Serial# 08D9AD1C; Strep A Nucleic Acid Negative (Negative)
[2022-07-12 17:50] LABS: Influenza A PCR NEGATIVE (Negative); Influenza B PCR NEGATIVE (Negative); Resp Syncy Virus RNA Qual PCR NEGATIVE (Negative); SARS COV2 PCR INHOUSE NEGATIVE (Negative)
--- NOTE | 2022-07-12 18:50 | PC.NURSE ---
plan for d/c with rx to pharmacy
== END 2022-07-12 18:54 | disposition home or self-care (01) ==
PROVIDERS: Physician Assistant; Emergency Provider Internal Medicine
DX: J02.9 Acute pharyngitis, unspecified (principal); Z20.822 Contact with and (suspected) exposure to COVID-19; Z20.828 Contact with and (suspected) exposure to other viral communicable diseases
CPT/HCPCS: 0241U; 87651; 99282

== ENCOUNTER 2022-07-31 08:09 | Emergency (ER) | payer OTHER, MEDICAID, SELFPAY ==
--- NOTE | ~2022-07-31 | XR_ITS ---
EXAMINATION: XR KNEE, RIGHT XR KNEE, LEFT CLINICAL INFORMATION: Trauma, bilateral knee pain. COMPARISON: None TECHNIQUE: Right knee is imaged in 5 views. Left knee is imaged in 6 views. FINDINGS: Right: No fracture, dislocation, or arthropathy. Normal bony mineralization. No joint narrowing. No effusion or fat fluid level. Hoffa's fat pad normal. Left: No fracture, dislocation, or arthropathy. Normal bony mineralization. No joint narrowing. No effusion or fat fluid level. Hoffa's fat pad normal. XR/XR knee RT 4V IMPRESSION: No fracture, dislocation, or arthropathy, bilateral knees
--- NOTE | ~2022-07-31 | XR_ITS ---
EXAMINATION: XR KNEE, RIGHT XR KNEE, LEFT CLINICAL INFORMATION: Trauma, bilateral knee pain. COMPARISON: None TECHNIQUE: Right knee is imaged in 5 views. Left knee is imaged in 6 views. FINDINGS: Right: No fracture, dislocation, or arthropathy. Normal bony mineralization. No joint narrowing. No effusion or fat fluid level. Hoffa's fat pad normal. Left: No fracture, dislocation, or arthropathy. Normal bony mineralization. No joint narrowing. No effusion or fat fluid level. Hoffa's fat pad normal. XR/XR knee LT 4V IMPRESSION: No fracture, dislocation, or arthropathy, bilateral knees
[2022-07-31 08:14] VITALS: PULSE 90; O2SAT 92
[2022-07-31 08:19] VITALS: BP 135/80; PULSE 77; RESP 24; TEMP 36.8; O2SAT 98; BMI 33.5
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
--- NOTE | 2022-07-31 09:26 | PC.NURSE ---
PA cleared patients c spine, collar removed by PA
[2022-07-31] MEDS: Ibuprofen 600 MG TABLET PO (10:06)
--- NOTE | 2022-07-31 12:02 | PC.NURSE ---
crutch training provided, pt tolerated well.
== END 2022-07-31 12:03 | disposition home or self-care (01) ==
PROVIDERS: Emergency Provider Emergency Medicine
DX: S80.02XA Contusion of left knee, initial encounter (principal); X58.XXXA Exposure to other specified factors, initial encounter; Y93.9 Activity, unspecified; Y92.9 Unspecified place or not applicable; Y99.9 Unspecified external cause status; Z79.899 Other long term (current) drug therapy
CPT/HCPCS: 73564; 99283; 99284

== ENCOUNTER 2023-01-13 15:45 | Emergency (ER) | payer MEDICAID, SELFPAY ==
--- NOTE | ~2023-01-13 | CT_ITS ---
EXAMINATION: CT ABDOMEN AND PELVIS WITH CONTRAST CLINICAL INFORMATION: Right lower quadrant pain, question appendicitis COMPARISON: None available. TECHNIQUE: Multidetector volumetric images were obtained from the superior aspect of the liver through the pubic symphysis following administration 85 mL of Omnipaque 350 intravenous contrast. Sagittal and coronal reformatted images were obtained on the technologist's workstation. Oral contrast: No This CT examination was performed using dose optimization techniques as appropriate, variously including the following: *Automated exposure control *Adjustment of mA and/or kV according to patient size (this includes techniques or standardized protocols for targeted exams where dose is matched to indication/reason for exam; i.e. extremities or head) *Use of iterative reconstruction technique DLP: 652 mGy-cm FINDINGS: LUNG BASES: The visualized lung bases are unremarkable. LIVER, GALLBLADDER, AND BILIARY TREE: The liver is normal in size, shape, and attenuation. There is slight prominence of intrahepatic bile ducts. Common bile duct appears nondilated. Gallbladder is physiologically distended. Gallstone is noted, without appreciable gallbladder wall thickening or surrounding inflammation. PANCREAS: Unremarkable. SPLEEN: Unremarkable. ADRENAL GLANDS: Unremarkable. KIDNEYS AND URETERS: No hydronephrosis or obstructing calculus bilaterally. Small hypodensity in the lower right kidney favors a cyst; no follow-up recommended. A tiny calculus is present in the lower left kidney. BLADDER: Unremarkable. GASTROINTESTINAL TRACT: Assessment for wall thickening in some segments of the colon is limited due to luminal collapse, though no significant pericolonic stranding is seen to strongly suggest a colitis. No evidence of bowel obstruction. Appendix is nondilated. Trace free fluid noted in the right quadrant. No free air is seen. ABDOMINAL WALL: No significant hernia is appreciated. LYMPH NODES: Normal. VASCULAR: Unremarkable. PELVIC VISCERA: Asymmetric prominence of the right ovary, better assessed on today's earlier pelvic ultrasound. Small amount of fluid in the pelvis. OSSEOUS STRUCTURES: Unremarkable. CT/CT abdomen pelvis w IV con IMPRESSION: 1. Normal appendix. 2. Small amount of nonspecific free fluid in the right lower quadrant and pelvis. Asymmetric prominence of the right ovary, also shown on today's earlier pelvic ultrasound. Though ultrasound did show ovarian flow, sequelae of intermittent torsion/detorsion cannot be excluded. 3. Cholelithiasis. 4. Slight prominence of intrahepatic bile ducts, of uncertain clinical significance. Common bile duct appears nondilated.
--- NOTE | ~2023-01-13 | US_ITS ---
EXAMINATION: ULTRASOUND PELVIC, COMPLETE CLINICAL INFORMATION: Right lower quadrant pain. History of ovarian cysts. COMPARISON: Pelvic ultrasound 01/27/2021 TECHNIQUE: Transvaginal: Used to better visualize pelvic structures Transabdominal: Not adequate for visualization Spectral Doppler and color Doppler exam was utilized. LMP: Last week FINDINGS: UTERUS: Uterus is unremarkable. Uterus measures 9.8 x 4.4 x 5.3 cm. Endometrial thickness 0.5 cm. The uterus is anteverted. ADNEXA: Ovarian vascularity:Doppler demonstrates both arterial and venous vascular flow in the right and left ovary. No evidence of ovarian torsion. Right Ovary: 5.5 x 6.3 x 3.1 cm. Volume 56.2 mL. Previous measurement 4.7 x 1.9 x 2.8 cm. Volume 13.2 mL. Left Ovary: 5.2 x 2.8 x 2.4 cm. Volume 18.3 mL. Previous measurement 4.6 x 2.4 x 3 cm. Volume 17.2 mL. Cul-de-sac: No Fluid US/US pelvic complete IMPRESSION: 1. No acute abnormality of pelvis. 2. Enlarged right ovary. No evidence of ovarian torsion. No fluid in the cul-de-sac. Consider short-term follow-up if pain persists.
--- NOTE | ~2023-01-13 | US_ITS ---
EXAMINATION: ULTRASOUND PELVIC, COMPLETE CLINICAL INFORMATION: Right lower quadrant pain. History of ovarian cysts. COMPARISON: Pelvic ultrasound 01/27/2021 TECHNIQUE: Transvaginal: Used to better visualize pelvic structures Transabdominal: Not adequate for visualization Spectral Doppler and color Doppler exam was utilized. LMP: Last week FINDINGS: UTERUS: Uterus is unremarkable. Uterus measures 9.8 x 4.4 x 5.3 cm. Endometrial thickness 0.5 cm. The uterus is anteverted. ADNEXA: Ovarian vascularity:Doppler demonstrates both arterial and venous vascular flow in the right and left ovary. No evidence of ovarian torsion. Right Ovary: 5.5 x 6.3 x 3.1 cm. Volume 56.2 mL. Previous measurement 4.7 x 1.9 x 2.8 cm. Volume 13.2 mL. Left Ovary: 5.2 x 2.8 x 2.4 cm. Volume 18.3 mL. Previous measurement 4.6 x 2.4 x 3 cm. Volume 17.2 mL. Cul-de-sac: No Fluid US/US pelvic ovarian doppler IMPRESSION: 1. No acute abnormality of pelvis. 2. Enlarged right ovary. No evidence of ovarian torsion. No fluid in the cul-de-sac. Consider short-term follow-up if pain persists.
[2023-01-13 16:05] VITALS: BP 99/78; PULSE 71; RESP 18; TEMP 36.4; O2SAT 100; BMI 34.1
--- NOTE | 2023-01-13 16:05 | ED_ITS ---
HPI - Abdominal Pain General Chief Complaint: Abdominal Pain Stated Complaint: abdominal pain, lightheaded, dizzy, vomiting Time Seen by Provider: 01/13/23 16:22 Source: patient Mode of arrival: ambulatory Limitations: no limitations History of Present Illness HPI narrative: Patient with history of ovarian cyst and right ovarian torsion 2 months ago status post cystectomy comes here sudden onset of right lower quadrant pain at 13:30 followed by nausea and vomiting similar to that what happened 2 months ago no fever no diarrhea no history of kidney stone no urinary complaint Related Data Home Medications Medication Instructions Recorded Confirmed albuterol sulfate 90 mcg/actuation 2 puff inhalation Q6H PRN 05/20/20 aerosol inhaler Previous Rx's Medication Instructions Recorded ibuprofen 800 mg tablet 800 mg PO Q8H PRN pain #30 tabs 05/13/20 amoxicillin 875 mg-potassium 1 tab PO Q12H 10 days #20 tabs 07/12/22 clavulanate 125 mg tablet naproxen 500 mg tablet 500 mg PO BID PRN pain 10 days #20 07/12/22 tabs ibuprofen 600 mg tablet 600 mg PO TID PRN pain #30 tabs 07/31/22 methocarbamol 750 mg tablet 750 mg PO TID PRN muscle spasm #20 07/31/22 tabs ibuprofen 600 mg tablet 600 mg PO Q6H PRN fever or pain 01/13/23 #30 tabs ondansetron 4 mg disintegrating 4 mg PO Q6-8H PRN nausea and 01/13/23 tablet vomiting #7 tabs tramadol 50 mg tablet 50 mg PO Q6H PRN pain #20 tabs 01/13/23 Allergies Allergy/AdvReac Type Severity Reaction Status Date / Time latex Allergy Rash Verified 01/13/23 16:05 Review of Systems Review of Systems Yes all other systems are reviewed and are negative [facility] Past Medical History Medical History Asthma Ovarian cyst Family History Family History Mother Asthma Father Diabetes Social History Social History Alcohol intake: current Alcohol intake frequency: does not drink Patient Tobacco Use Status: Never used Tobacco Advance Directives: No Advance Directives Information Provided: No Sexual orientation: Straight/Heterosexual Gender identity: Female Physical Exam ED Vital Signs: Vital Signs - 24 hr 01/13/23 16:05 Temperature 97.6 F Pulse Rate 71 Respiratory Rate 18 Blood Pressure 99/78 Pulse Oximetry 100 Oxygen Delivery Method Room Air BMI result Body Mass Index 34.1 Appearance: Alert. Oriented X3. In moderate distress Eyes: No pallor/ icterus ENT: Pharynx normal. Oral Mucosa moist Neck: Normal inspection. Neck supple. CVS: Normal heart rate and rhythm. Pulses normal. Respiratory: No respiratory distress. Equal air entry bilateral, no wheezing/rales/rhonchi Abdomen: Soft , tenderness right lower quadrant with guarding Bowel sounds are present, no mass palpable, no CVA tenderness Skin: Skin warm and dry. Normal skin color. Normal skin turgor. Extremities: No lower extremity edema. No calf tenderness Neuro: Oriented X 3. No motor deficit. Course Course Course Narrative: RME: 27 year old patient with history ovarian cyst removal 2 months ago and asthma presents today with significant RLQ pain that started 1330 this afternoon. Patient elicits feeling lightheaded, SOB, nausea and emesis x2. Denies fever, chest pain. Last Period last week. Plan: Basic labs, abd pelvic Us with doppler ordered Medical Decision Making Differential Diagnosis Differential Diagnoses: The differential diagnosis associated with the presentation includes ovarian cyst/ectopic /ovarian torsion/appendicitis Lab Data MDM Lab Attestation statement: I reviewed the patient's lab results. 01/13/23 16:25 01/13/23 16:25 Labs: Lab Results 01/13/23 01/13/23 01/13/23 Range/Units 16:25 16:25 20:45 WBC 11.1 H (4.8-10.8) X10*3/uL RBC 4.74 (4.20-5.50) X10*6/uL Hgb 13.3 (12.0-16.0) g/dl Hct 40.3 (37.0-47.0) % MCV 85.0 (80.0-98.0) fL MCH 28.1 (27.0-33.0) pg MCHC 33.0 (31.0-35.0) g/dl RDW 12.0 (11.0-16.0) % Plt Count 289 (160-400) X10*3/uL MPV 10.7 (9.4-12.3) fL Immature Gran % (Auto) 0.3 (0.0-0.4) % Neut % (Auto) 74.3 H (45-73) % Lymph % (Auto) 19.0 L (20-40) % [place] % (Auto) 3.6 (2-11) % Eos % (Auto) 2.3 (0-4) % Baso % (Auto) 0.5 (0-2) % Lymph # (Auto) 2.1 (1.2-4.9) X10*3/uL [place] # (Auto) 0.4 (0.1-1.2) X10*3/uL Eos # (Auto) 0.3 (0.0-0.4) X10*3/uL Baso # (Auto) 0.1 (0.0-0.2) X10*3/uL Abs Immat Gran (auto) 0.03 (0.00-0.03) X10*3/uL Absolute Neuts (auto) 8.3 (2.0-8.3) x10*3/uL Absolute Nucleated RBC 0.000 (0.0-0.012) X10*3/uL Nucleated RBC % (auto) 0.0 (0.0-0.2) /100WBC Sodium 140 (135-145) mmol/L Potassium 3.7 (3.3-5.1) mmol/L Chloride 105 (96-108) mmol/L Carbon Dioxide 20 L (22-29) mmol/L Anion Gap TNP BUN 10 (9-16) mg/dL Creatinine 0.79 (0.5-1.4) mg/dL Estim Creat Clear Calc 126.9 Estimated GFR > 60 Random Glucose 100 (60-115) mg/dL Calcium 9.9 (8.4-10.2) mg/dL Magnesium 1.9 (1.6-2.6) mg/dL Total Bilirubin 0.4 (0.0-1.0) mg/dL Direct Bilirubin 0.1 (0.0-0.5) mg/dL AST 16 (5-31) U/L ALT 16 (0-31) U/L Alkaline Phosphatase 82 (39-117) U/L Total Protein 7.8 (6.5-8.0) g/dL Albumin 4.4 (3.5-5.0) g/dL Urine Color Yellow Urine Appearance Clear Urine pH 7.0 (5.0-9.0) Ur Specific [place] 1.015 (1.005-1.025) Urine Protein Negative (Neg-Trace) mg/dL Urine Glucose (UA) Negative (Negative) mg/dL Urine Ketones Trace (Negative) mg/dL Urine Blood Negative (Negative) Urine Nitrite Negative (Negative) Ur Leukocyte Esterase Negative (Negative) Urine Test (NEGATIVE) 01/13/23 Range/Units 20:45 WBC (4.8-10.8) X10*3/uL RBC (4.20-5.50) X10*6/uL Hgb (12.0-16.0) g/dl Hct (37.0-47.0) % MCV (80.0-98.0) fL MCH (27.0-33.0) pg MCHC (31.0-35.0) g/dl RDW (11.0-16.0) % Plt Count (160-400) X10*3/uL MPV (9.4-12.3) fL Immature Gran % (Auto) (0.0-0.4) % Neut % (Auto) (45-73) % Lymph % (Auto) (20-40) % Childress % (Auto) (2-11) % Eos % (Auto) (0-4) % Baso % (Auto) (0-2) % Lymph # (Auto) (1.2-4.9) X10*3/uL Childress # (Auto) (0.1-1.2) X10*3/uL Eos # (Auto) (0.0-0.4) X10*3/uL Baso # (Auto) (0.0-0.2) X10*3/uL Abs Immat Gran (auto) (0.00-0.03) X10*3/uL Absolute Neuts (auto) (2.0-8.3) x10*3/uL Absolute Nucleated RBC (0.0-0.012) X10*3/uL Nucleated RBC % (auto) (0.0-0.2) /100WBC Sodium (135-145) mmol/L Potassium (3.3-5.1) mmol/L Chloride (96-108) mmol/L Carbon Dioxide (22-29) mmol/L Anion Gap BUN (9-16) mg/dL Creatinine (0.5-1.4) mg/dL Estim Creat Clear Calc Estimated GFR Random Glucose (60-115) mg/dL Calcium (8.4-10.2) mg/dL Magnesium (1.6-2.6) mg/dL Total Bilirubin (0.0-1.0) mg/dL Direct Bilirubin (0.0-0.5) mg/dL AST (5-31) U/L ALT (0-31) U/L Alkaline Phosphatase (39-117) U/L Total Protein (6.5-8.0) g/dL Albumin (3.5-5.0) g/dL Urine Color Urine Appearance Urine pH (5.0-9.0) Ur Specific [place] (1.005-1.025) Urine Protein (Neg-Trace) mg/dL Urine Glucose (UA) (Negative) mg/dL Urine Ketones (Negative) mg/dL Urine Blood (Negative) Urine Nitrite (Negative) Ur Leukocyte Esterase (Negative) Urine Test NEGATIVE (NEGATIVE) Medications Administered Discontinued Medications Generic Name Dose Route Start Last Admin Trade Name Freq PRN Reason Stop Dose Admin Sodium Chloride 1,000 mls @ 999 mls/hr 01/13/23 16:30 01/13/23 21:19 Ns IVCONT 01/13/23 18:30 Infused .Q1H1M HIMANSHU Infusion Iohexol 85 ml 01/13/23 21:37 01/13/23 21:37 Iohexol 350 Mg/Ml 100 Ml Infus..Btl IV 01/13/23 21:38 85 ml ONCE ONE Administration Ketorolac Tromethamine 30 mg 01/13/23 18:26 01/13/23 18:37 Ketorolac Tromethamine 30 Mg/Ml Vial IVPUSH 01/13/23 18:27 30 mg ONCE ONE Administration Morphine Sulfate 4 mg 01/13/23 16:28 01/13/23 16:38 Morphine Sulfate 4 Mg/Ml Cartridge IVPUSH 01/13/23 16:29 4 mg ONCE ONE Administration Protocol Ondansetron HCl 4 mg 01/13/23 16:28 01/13/23 16:38 Ondansetron Hcl 4 Mg/2 Ml Vial IVPUSH 01/13/23 16:29 4 mg ONCE ONE Administration Discharge Plan Discharge Clinical Impression: Abdominal pain, Gastroenteritis Patient Disposition: Home, Self-Care Instructions: Acute Nausea and Vomiting (ED), Abdominal Pain (ED) Additional Instructions: Cause of abdominal pain is not clear likely gastroenteritis If pain continues or gets worse come back to the ER for further evaluate Tramadol/Motrin for pain Zofran for nausea 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 Prescriptions: New tramadol 50 mg tablet 50 mg PO Q6H PRN (Reason: pain) Qty: 20 0RF ibuprofen 600 mg tablet 600 mg PO Q6H PRN (Reason: fever or pain) Qty: 30 0RF ondansetron 4 mg tablet,disintegrating 4 mg PO Q6-8H PRN (Reason: nausea and vomiting) Qty: 7 0RF No Action ibuprofen 800 mg tablet 800 mg PO Q8H PRN (Reason: pain) Qty: 30 0RF amoxicillin-pot clavulanate 875-125 mg tablet 1 tab PO Q12H 10 Days Qty: 20 0RF naproxen 500 mg tablet 500 mg PO BID PRN (Reason: pain) 10 Days Qty: 20 0RF ibuprofen 600 mg tablet 600 mg PO TID PRN (Reason: pain) Qty: 30 0RF methocarbamol 750 mg tablet 750 mg PO TID PRN (Reason: muscle spasm) Qty: 20 0RF albuterol sulfate 90 mcg/actuation HFA aerosol inhaler 2 puff inhalation Q6H PRN Stand Alone Forms: Work/School Release Interventions: ED Discharge Assessment Last Done: 01/13/23 23:07 Discharge Date/Time: 01/13/23 23:11
[2023-01-13 16:34] LABS: MANUAL DIFF FLAG NO
[2023-01-13] MEDS: 0.9 % Sodium Chloride 1,000 ML 999 ML IVCONT ×2 (16:37→18:21)
[2023-01-13 16:38] LABS: Basophils Absolute Auto 0.1 X10*3/uL (0.0-0.2); Basophils Percent Auto 0.5 % (0-2); Eosinophils Absolute Auto 0.3 X10*3/uL (0.0-0.4); Eosinophils Percent Auto 2.3 % (0-4); Hematocrit 40.3 % (37.0-47.0); Hemoglobin 13.3 g/dl (12.0-16.0); Imm Gran Abs Auto 0.03 X10*3/uL (0.00-0.03); Imm Gran Pct Auto 0.3 % (0.0-0.4); Lymphocytes Absolute Auto 2.1 X10*3/uL (1.2-4.9); Mean Corpuscular Hemoglobin 28.1 pg (27.0-33.0); Mean Platelet Volume 10.7 fL (9.4-12.3); Monocytes Absolute Auto 0.4 X10*3/uL (0.1-1.2); Monocytes Percent Auto 3.6 % (2-11); Neutrophils Absolute Auto 8.3 x10*3/uL (2.0-8.3); Neutrophils Percent Auto 74.3 % (45-73); Platelet Count 289 X10*3/uL (160-400); Red Blood Count 4.74 X10*6/uL (4.20-5.50); White Blood Count 11.1 X10*3/uL (4.8-10.8)
[2023-01-13] MEDS: ondansetron HCL 4 MG/2 ML VIAL IVPUSH (16:38)
[2023-01-13] MEDS: Morphine Sulfate 4 MG/ML CARTRIDGE IVPUSH (16:38)
[2023-01-13 16:53] LABS: Alanine Aminotransferase 16 U/L (0-31); Albumin Level 4.4 g/dL (3.5-5.0); Alkaline Phosphatase 82 U/L (39-117); Aspartate Amino Transferase 16 U/L (5-31); Bilirubin Direct 0.1 mg/dL (0.0-0.5); Bilirubin Total 0.4 mg/dL (0.0-1.0); Blood Urea Nitrogen 10 mg/dL (9-16); Calcium 9.9 mg/dL (8.4-10.2); Chloride 105 mmol/L (96-108); Creatinine Clr Calc Pharmacy 126.9; Estimated Glomerular Filt Rate > 60; Glucose Random 100 mg/dL (60-115); Magnesium 1.9 mg/dL (1.6-2.6); Potassium 3.7 mmol/L (3.3-5.1); Sodium 140 mmol/L (135-145); Total Protein 7.8 g/dL (6.5-8.0)
[2023-01-13] MEDS: Ketorolac Tromethamine 30 MG/ML VIAL IVPUSH (18:37)
[2023-01-13 19:39] VITALS: BP 123/72; PULSE 65; RESP 18; TEMP 36.4; O2SAT 99
[2023-01-13 21:00] LABS: Appearance Urine Clear; Color Urine Yellow; Glucose Urine UA Negative (Negative); Leukocyte Esterase Urine Negative (Negative); Nitrite Urine Negative (Negative); Specific Gravity - Urine 1.015 (1.005-1.025); Urine Blood Negative (Negative); Urine Ketones Trace mg/dL (Negative); Urine Protein Negative (Neg-Trace)
[2023-01-13 21:20] LABS: UPreg QC Valid YES; Urine Pregnancy NEGATIVE (NEGATIVE)
[2023-01-13 21:30] LABS: Carbon Dioxide 20 mmol/L (22-29)
[2023-01-13] MEDS: iohexoL 350 MG/ML 100 ML INFUS..BTL 85 ML IV (21:37)
[2023-01-13 22:20] VITALS: BP 122/65; PULSE 64; RESP 18; TEMP 37.1; O2SAT 99
== END 2023-01-13 23:11 | disposition home or self-care (01) ==
PROVIDERS: Physician Assistant; Emergency Provider Internal Medicine
DX: K52.9 Noninfective gastroenteritis and colitis, unspecified (principal); R10.31 Right lower quadrant pain; R11.2 Nausea with vomiting, unspecified
CPT/HCPCS: 36415; 74177; 76856; 80048; 80076; 81003; 81025; 83735; 85025; 93975; 96361; 96374; 96375; 99284; J1885; J2270; J2405; Q9967

== ENCOUNTER 2023-01-28 16:42 | Emergency (ER) | payer MEDICAID, SELFPAY ==
--- NOTE | ~2023-01-28 | XR_ITS ---
EXAMINATION: XR SACRUM AND COCCYX CLINICAL INFORMATION: Tailbone pain. COMPARISON: None available. TECHNIQUE: 2 views of the sacrum and 2 views of the coccyx were obtained. FINDINGS: No evidence of displaced fractures or malalignment. SI joints are symmetric. Pubic symphysis is maintained. No significant soft tissue abnormality. XR/XR sacrum coccyx min 2V IMPRESSION: No acute fractures or malalignment.
[2023-01-28 16:46] VITALS: BP 118/68; PULSE 105; O2SAT 99
[2023-01-28 16:50] VITALS: BP 130/69; PULSE 84; RESP 14; TEMP 36.8; O2SAT 97; BMI 33.2
[2023-01-28] MEDS: Ibuprofen 800 MG TABLET PO (17:53)
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
== END 2023-01-28 19:09 | disposition home or self-care (01) ==
PROVIDERS: Emergency Provider Emergency Medicine
DX: S39.92XA Unspecified injury of lower back, initial encounter (principal); M53.3 Sacrococcygeal disorders, not elsewhere classified; V43.52XA Car driver injured in collision with other type car in traffic accident, initial encounter; Y93.9 Activity, unspecified; Y92.410 Unspecified street and highway as the place of occurrence of the external cause; Y99.9 Unspecified external cause status
CPT/HCPCS: 72220; 99283

== ENCOUNTER 2024-05-03 16:25 | Outpatient (REF) | payer MEDICAID, SELFPAY ==
[2024-05-03 18:27] LABS: Bacterial Vaginosis PCR NEGATIVE (Negative); Candida Group PCR DETECTED (Not Detect); Candida glab krusei PCR NOT DETECTED (Not Detect); Trichomonas vaginalis PCR NOT DETECTED (Not Detect)
== END 2024-05-03 16:26 | disposition home or self-care (01) ==
LOC: HO.LNP 16:25
PROVIDERS: Visit Provider Family Medicine
DX: N89.8 Other specified noninflammatory disorders of vagina (principal)
CPT/HCPCS: 0352U

== ENCOUNTER 2024-06-14 15:18 | Outpatient (REF) | payer MEDICAID, SELFPAY ==
[2024-06-14 16:54] LABS: Estimated Average Glucose 103 mg/dL; Hemoglobin A1C 106.1218 umol/L; Hemoglobin A1c % 5.2 % (<6.0)
[2024-06-14 17:42] LABS: Alanine Aminotransferase 23 U/L (0-31); Albumin Level 4.3 g/dL (3.5-5.0); Alkaline Phosphatase 60 U/L (39-117); Anion Gap 8 (12-20); Aspartate Amino Transferase 17 U/L (5-31); Bilirubin Total 0.4 mg/dL (0.0-1.0); Blood Urea Nitrogen 10 mg/dL (9-16); Calcium 9.6 mg/dL (8.4-10.2); Carbon Dioxide 25 mmol/L (22-29); Chloride 109 mmol/L (96-108); Cholesterol 151 mg/dL (<200); Estimated Glomerular Filt Rate > 60; Glucose Random 77 mg/dL (60-115); HDL Cholesterol 47 mg/dL (>40); LDL Cholesterol Calculated 92 mg/dL (<100); Potassium 3.7 mmol/L (3.3-5.1); Sodium 138 mmol/L (135-145); Total Protein 7.2 g/dL (6.5-8.0); Triglycerides 60 mg/dL (<150)
[2024-06-14 17:49] LABS: HCG Quantitative < 2 mIU/mL
[2024-06-15 03:48] LABS: Syphilis Screen Nonreactive (Nonreactive)
[2024-06-15 04:44] LABS: HBS Num1 173.92 mIU/mL (0-7.99); HBc Num1 0.12 S/CO (0.00-0.79); HBsAGNum1 0.42 S/CO (0.00-0.99); HIV AB/AG Nonreactive (Nonreactive); HIV Num 1 0.07 S/CO (0.00-0.99); Hepatitis B Core Antibody Nonreactive (Nonreactive); Hepatitis B Surface Antigen Negative (Negative); ~Hepatitis B Surface Antibody REACTIVE (Nonreactive); ~Hepatitis C Antibody Nonreactive (Nonreactive)
== END 2024-06-14 15:19 | disposition home or self-care (01) ==
LOC: HO.HHCL 15:18
PROVIDERS: Visit Provider Registered Nurse
DX: E66.811 Obesity, class 1 (principal); Z11.3 Encounter for screening for infections with a predominantly sexual mode of transmission; E66.09 Other obesity due to excess calories; Z68.30 Body mass index [BMI] 30.0-30.9, adult; R10.2 Pelvic and perineal pain
CPT/HCPCS: 36415; 80053; 80061; 83036; 84702; 86704; 86706; 86780; 86803; 87340; 87389

== ENCOUNTER 2024-07-05 13:42 | Outpatient (REF) | payer MEDICAID, SELFPAY ==
--- NOTE | ~2024-07-05 | US_ITS ---
EXAMINATION: US PELVIS TRANSABDOMINAL AND TRANSVAGINAL HISTORY: left adnexal pain, hx of ovarian cyst COMPARISON: Comparison is made with the prior examination dated 01/13/2023. TECHNIQUE: Transabdominal and endovaginal real-time 2D martinez-scale ultrasound was performed. Color Doppler was also performed. FINDINGS: Uterus: The uterus is normal in size, measuring 10.7 x 4.6 x 6.8 cm. Myometrium has a normal echotexture. No fibroids are identified. Endometrium: The endometrial stripe measures 10 mm in thickness. There is trace fluid in the cervix. Right ovary: The right ovary is not visualized. Left ovary: The left ovary measures 5.5 x 2.7 x 3.4 cm. There is a 2.4 x 1.5 x 1.6 cm cyst versus dominant follicle. There are tiny left ovarian calcifications. Pelvic fluid: There is trace fluid in the cul-de-sac.. US/US pelvic and transvaginal IMPRESSION: 2.4 x 1.5 x 1.6 cm left ovarian cyst versus follicle. The right ovary is not identified. Electronically signed by: Wayne Butt MD 07/07/2024 11:13 AM EST
== END 2024-07-05 13:43 | disposition home or self-care (01) ==
LOC: HO.US 13:42
PROVIDERS: PCP Registered Nurse; Visit Provider Registered Nurse
DX: R10.2 Pelvic and perineal pain (principal)
CPT/HCPCS: 76830; 76856

== ENCOUNTER → 2024-07-05 13:46 | Outpatient (BNV) | payer MEDICAID, SELFPAY | PROVIDERS: PCP Registered Nurse; Visit Provider Radiology Diagnostic Radiology | DX: R10.2 Pelvic and perineal pain (principal) | CPT/HCPCS: 76830; 76856 ==